=== PATIENT | male | born 1985 | race Caucasian/White ===

== ENCOUNTER 2017-10-08 10:37 | Emergency (ER) | payer SELFPAY ==
[2017-10-08] MEDS: dexameTHASONE 4 MG/ML 1ML VIAL (J1100) PO (11:26)
== END 2017-10-08 12:23 | disposition home or self-care (01) ==
LOC: M ED 10:37
DX: J02.8 Acute pharyngitis due to other specified organisms (principal); K12.2 Cellulitis and abscess of mouth; F17.200 Nicotine dependence, unspecified, uncomplicated
CPT/HCPCS: J1100